=== PATIENT | female | born 1940 | race African-American/Black ===

== ENCOUNTER 2016-12-04 15:48 | Emergency (ER) | payer MEDICARE, MEDICAID ==
[~2016-12-04] VITALS: Ht 157.5 cm; Wt 46.4 kg
[~2016-12-04 15:48] MED LIST: ALPHAGAN P0.1 % OU; ARICEPT10 MG PO; ASPIRIN EC81 MG PO; CRESTOR5 MG PO; ENTERIC COATED325 MG PO; FERROUS SULF324 M1 OR; FERROUS SULF324 M1 PO; FISH OIL1 CAP PO; FLUZONE SPLT1 M1 IM; FLUZONE1 M1 IM; FOLIC ACID1 MG PO; GLYBURIDE1.25 MG PO; GLYBURIDE2.5 M1 PO; GLYBURIDE2.5 MG PO; HEMATINIC PL OR; HEMATINIC PL PO; LISINOPRIL20 MG PO; LISINOPRIL5 MG PO; LOPRESSOR25 M1 PO; MEGACE20 MG/TAB PO; MELATONIN3 MG PO; MULTI VIT PO; NAMENDA XR28 MG PO; OMEPRAZOLE20 M1 PO; PROCARDIA XL90 MG OR; PROCARDIA XL90 MG PO; PROTONIX40 M2 PO
[2016-12-04 16:46] LABS: IMMATURE GRANULOCYTES 0.5 % (0.0-1.0); MEAN CELL VOLUME 71.6 fL CALC (80.0-100.0); MEAN CORPUSCULAR HGB CONC 27.9 g/L CALC (32.0-36.0); NEUT# 7.17 thou/uL (2.00-7.15); RED BLOOD COUNT 2.15 mill/uL (4.20-5.60); RED CELL DISTRI WIDTH 19.8 % (11.5-15.5)
[2016-12-04 16:52] LABS: HEMATOCRIT 15.4 % (37.0-47.0); HEMOGLOBIN 4.3 g/dl (12.0-16.0)
[2016-12-04 16:56] LABS: ALBUMIN 3.6 g/dL (3.2-5.0); BILIRUBIN, TOTAL 0.2 mg/dL (0.0-1.4); CALCIUM 8.8 mg/dL (8.4-10.2); CREATININE 1.4 mg/dL (0.5-1.0); POTASSIUM 4.9 mmol/l (3.5-5.1); TOTAL PROTEIN 7.4 g/dL (6.3-8.2)
[2016-12-04 17:14] LABS: URINE BILIRUBIN - DIPSTICK NEGATIVE (NEGATIVE); URINE BLOOD DIPSTICK NEGATIVE (NEGATIVE); URINE CLARITY CLEAR; URINE COLOR YELLOW; URINE GLUCOSE - DIPSTICK NEGATIVE (NEGATIVE); URINE KETONE NEGATIVE (NEGATIVE); URINE LEUK ESTERASE NEGATIVE (NEGATIVE); URINE PROTEIN - DIPSTICK NEGATIVE (NEG-TRACE)
[2016-12-04 17:15] LABS: URINE NITRITE - DIPSTICK POSITIVE (Negative)
[2016-12-04 17:18] LABS: ACT PARTIAL THROMBO TIME 23.1 SECONDS (20.0-32.5); INTERNATIONAL NORMALIZED RATIO 1.1 RATIO (0.7-1.3); PROTHROMBIN TIME 11.5 SECONDS (9.0-12.5)
[2016-12-04 17:32] LABS: URINE BACTERIA MODERATE hpf; URINE SQUAMOUS EPITHELIAL CELL FEW EPI/hpf (0-FEW)
[2016-12-04 20:01] VITALS: BP 116/45
[2016-12-04 20:14] VITALS: BP 112/50
[2016-12-04 20:56] VITALS: BP 119/51
== END 2016-12-04 20:56 | disposition short-term general hospital (02) ==
LOC: ED 15:48 → ED-I 16:54 → ED 20:56
PROVIDERS: Family Medicine
PROC: 30233N1 Transfusion of Nonautologous Red Blood Cells into Peripheral Vein, Percutaneous Approach (ICD-10-PCS; principal; 2016-12-04)
DX: K92.2 Gastrointestinal hemorrhage, unspecified (principal); D64.9 Anemia, unspecified; F03.90 Unspecified dementia, unspecified severity, without behavioral disturbance, psychotic disturbance, mood disturbance, and anxiety; R53.1 Weakness; B96.20 Unspecified Escherichia coli [E. coli] as the cause of diseases classified elsewhere; I10 Essential (primary) hypertension; R50.9 Fever, unspecified
CPT/HCPCS: P9016; S0164

== ENCOUNTER 2016-12-25 20:29 | Emergency (ER) | payer MEDICARE, MEDICAID ==
[~2016-12-25] VITALS: Ht 157.5 cm; Wt 45.0 kg
[2016-12-26 00:39] LABS: HEMATOCRIT 33.3 % (37.0-47.0); IMMATURE GRANULOCYTES 0.2 % (0.0-1.0); MEAN CELL VOLUME 82.4 fL CALC (80.0-100.0); MEAN CORPUSCULAR HGB 24.8 pG CALC (26.0-32.0); NEUT# 6.18 thou/uL (2.00-7.15); RED BLOOD COUNT 4.04 mill/uL (4.20-5.60); RED CELL DISTRI WIDTH 22.7 % (11.5-15.5)
[2016-12-26 00:46] LABS: ALBUMIN 3.8 g/dL (3.2-5.0); BILIRUBIN, TOTAL 0.5 mg/dL (0.0-1.4); CALCIUM 9.8 mg/dL (8.4-10.2); CREATININE 1.5 mg/dL (0.5-1.0); TOTAL PROTEIN 8.9 g/dL (6.3-8.2)
[2016-12-26 00:47] LABS: POTASSIUM 5.4 mmol/l (3.5-5.1)
[2016-12-26] MEDS ORDERED: ROBITUSSIN AC10 ML PO (01:52)
[2016-12-26 02:45] VITALS: BP 180/79
== END 2016-12-26 02:53 | disposition home or self-care (01) ==
LOC: ED 20:29
PROVIDERS: Emergency Medicine
DX: R53.1 Weakness (principal); C80.1 Malignant (primary) neoplasm, unspecified; C78.00 Secondary malignant neoplasm of unspecified lung; R41.82 Altered mental status, unspecified; R53.83 Other fatigue; I10 Essential (primary) hypertension